=== PATIENT | female | born 1945 | race Caucasian/White ===

== ENCOUNTER → 2021-04-23 13:06 | Outpatient (CLI) | payer MEDICARE, BC, SELFPAY ==
[2021-04-23 14:36] LABS: COVID19 -Nasal RAPID Negative (Negative)
== END ==
PROVIDERS: PCP Family Medicine; Referring Provider Internal Medicine; Visit Provider Internal Medicine
DX: Z20.822 Contact with and (suspected) exposure to COVID-19 (principal); J84.9 Interstitial pulmonary disease, unspecified; J47.9 Bronchiectasis, uncomplicated
CPT/HCPCS: 71250; 87635; C9803

== ENCOUNTER → 2021-04-23 13:12 | Outpatient (CLI) | payer MEDICARE, BC, SELFPAY ==
--- NOTE | 2021-04-23 13:18 | DI.CT.S_ITS ---
PROCEDURE: CT CHEST HIGH RESOLUTION INDICATIONS: Interstitial pulmonary disease, unspecified TECHNIQUE: Noncontrast 1.0 and 5.0 mm thick contiguous axial sections from the pulmonary apex to the posterior costophrenic angles, with 7 mm thick coronal and sagittal MIP reformats. 1 mm thick dynamic expiratory images acquired through the upper, mid, and lower lungs. 1.0 mm thick axial sections acquired from the celestine to the posterior costophrenic angles in the prone end-inspiration position. For radiation dose reduction, the following was used: automated exposure control, adjustment of mA and/or kV according to patient size. COMPARISON: None. FINDINGS: Image quality: Excellent. Lungs: There is moderate subpleural reticular thickening. This persists on the prone sequence. There is mild bronchiectasis. No honeycombing. No air trapping seen. The airways are clear. Pleura: No pleural effusions or pneumothorax. Mediastinum: Heart size is normal. Three-vessel coronary artery calcifications. No pericardial effusion. Small AP window node measuring 0.8 cm, (4/20). Thoracic aorta and central pulmonary arteries are normal in size. Esophagus is normal in caliber. Bones and chest wall: No suspicious bony lesions. No vertebral body compression fractures. Abdomen: Post cholecystectomy. Visualized upper abdominal solid organs and bowel loops appear normal. IMPRESSION: Probable UIP pattern interstitial lung disease. Moderate subpleural reticulation with mild bronchiectasis. No honeycombing. If remote CTs are available, it would be helpful for comparison to assess disease progression. Dictated by: Mani Zaragoza M.D. on 04/23/2021 at 14:36 Approved by: Mani Zaragoza M.D. on 04/23/2021 at 14:48
== END ==
PROVIDERS: PCP Family Medicine; Referring Provider Internal Medicine; Visit Provider Internal Medicine
DX: J84.9 Interstitial pulmonary disease, unspecified (principal); J47.9 Bronchiectasis, uncomplicated
CPT/HCPCS: 71250

== ENCOUNTER → 2021-04-24 12:02 | Outpatient (CLI) | payer MEDICARE, BC, SELFPAY ==
--- NOTE | 2021-05-01 09:39 | PM.PFT.1 ---
Pulmonary Function Test Referral & Results Date Patient Seen: 04/24/21 Requesting provider: Shorty Galeas Results: The spirometry demonstrates an FVC of 2.55 L which is 95% of predicted. The FEV1 was measured at 2.17 L which is 108% of predicted. The FEV1/FVC ratio was 85 which is 115% of predicted. Following the administration of bronchodilator there was 25% improvement in FEF 25-75% Lung volumes show an SVC of 2.85 L which is 105% of predicted. The diffusing capacity was measured at 11.53 which is 47% of predicted. No hemoglobin value was provided, so no correction for potential anemia could be made, if appropriate. The maximum voluntary ventilation was normal Interpretation: This study demonstrates probably normal spirometry. There is a minimal improvement in small airway flow after bronchodilator but otherwise is without evidence of any obstructive lung disease There is a marked reduction diffusing capacity suggesting significant disease at the capillary alveolar level This suggests more of a true interstitial lung disease Clinical correlation suggested
== END ==
PROVIDERS: PCP Family Medicine; Referring Provider Internal Medicine; Visit Provider Internal Medicine
DX: R06.02 Shortness of breath (principal); Z87.891 Personal history of nicotine dependence; J84.9 Interstitial pulmonary disease, unspecified
CPT/HCPCS: 94060; 94618; 94726; 94729

== ENCOUNTER → 2021-08-23 13:13 | Outpatient (CLI) | payer MEDICARE, BC, SELFPAY ==
--- NOTE | 2021-08-23 | DI.RAD.S_ITS ---
PROCEDURE: XR CHEST 2V INDICATIONS: Single subsegmental pulmonary embolism without acute cor pul TECHNIQUE: 2 views of the chest were acquired. COMPARISON: None. FINDINGS: Surgical changes and devices: None. Lungs and pleura: Diffuse interstitial change which may potentially represent mild acute interstitial pulmonary edema. No pleural effusions or pneumothorax. Mediastinum: Mediastinal contours are normal. Cardiomegaly. Bones and chest wall: No suspicious bony abnormalities. Soft tissues appear unremarkable. IMPRESSION: Cardiomegaly. Question mild interstitial pulmonary edema. Dictated by: Félix De Jesus M.D. on 08/23/2021 at 14:17 Approved by: Félix De Jesus M.D. on 08/23/2021 at 14:18
--- NOTE | 2021-08-23 | DI.NM.S_ITS ---
PROCEDURE: NM PUL VENT AND PERFUSION RADIOPHARMACEUTICAL: 37.6 mCi Tc-99m DTPA aerosol by inhalation and 6.8 mCi Tc-99m MAA intravenously. INDICATIONS: Single subsegmental pulmonary embolism without acute cor pul TECHNIQUE: Ventilation images were obtained first with Tc-99m DTPA aerosol. Subsequently, perfusion images were acquired after intravenous injection of Tc-99m MAA. Anterior, posterior, CHAO, MINAL, RPO, LPO, left and right lateral views were obtained. COMPARISON: [facility], CR, XR CHEST 2V, 08/23/2021, 13:15. FINDINGS: Chest x-ray demonstrates bibasilar coarsening of likely interstitial edema. There are scattered small matched defects identified. No moderate or large mismatched defects. IMPRESSION: Scattered small matched defects. Overall low probability for pulmonary embolism. However, if concern persists, CT is recommended for further evaluation. Dictated by: Alexa Juarez M.D. on 08/23/2021 at 16:56 Approved by: Alexa Juarez M.D. on 08/23/2021 at 16:58
== END ==
PROVIDERS: PCP Family Medicine; Referring Provider Internal Medicine; Visit Provider Internal Medicine
DX: I26.93 Single subsegmental thrombotic pulmonary embolism without acute cor pulmonale (principal); I51.7 Cardiomegaly
CPT/HCPCS: 71046; 78582; A9539; A9540

== ENCOUNTER → 2022-11-26 13:26 | Outpatient (CLI) | payer MEDICARE, SELFPAY ==
--- NOTE | 2022-11-26 | DI.ECHO.S_ITS ---
[place] +---------+ [facility] +---------+ : : [address] : : : : [id number] : : : : Phone: [phone]+ Echocardiogram Report + + :Name: BEATRIZ DEL REAL Study Date: 11/26/2022 Height: 64 in : :[facility] ReadingLocation: Weight: 175 lb : : Gender: Female BSA: 1.8 m2 : :: 1945 Age: 77 yrs BP: 125/74 mmHg: :Reason For Study: DYSPNEA : :Ordering Physician: JANNIE, : :ERIK Performed By: Bess Fox : :Referring: ERIK VALDERRAMA : + + Interpretation Summary The ejection fraction is estimated to be 45-50%. There is inferior wall mild hypokinesis. The right ventricle is mildly dilated. The right ventricular systolic function is normal. There is no significant valvular heart disease. Procedure: A two-dimensional transthoracic echocardiogram with color flow and Doppler was performed. The study quality was technically adequate. There is no prior echocardiogram noted for this patient. The patient was in sinus rhythm with heart rates between 75-82 bpm during the exam. Left Ventricle: The left ventricle is normal in size and wall thickness. The ejection fraction is estimated to be 45-50%. There is inferior wall mild hypokinesis. Right Ventricle: The right ventricle is mildly dilated. The right ventricular systolic function is normal. Atria: The left atrial size is normal. Right atrial size is normal. There is no Doppler evidence for an interatrial shunt. Mitral Valve: There is mild mitral annular calcification. The mitral valve leaflets appear normal. There is no evidence of stenosis, fluttering, or prolapse. There is trace mitral regurgitation. Aortic Valve: The aortic valve is trileaflet. The aortic valve opens well. The aortic valve is slightly calcified. There is no aortic valve stenosis. No aortic regurgitation is present. Tricuspid Valve: The tricuspid valve is not well visualized, but is grossly normal. There is trace tricuspid regurgitation. Pulmonic Valve: The pulmonic valve leaflets are thin and pliable; valve motion is normal. There is trace pulmonic regurgitation. Great Vessels: The aortic root is normal size. The dimensions of the ascending aorta are normal. The IVC is of normal diameter and collapses greater than 50% with a sniff. This suggests a low right atrial pressure of 3 mm Hg. Pericardium/ Pleura There is no pericardial effusion. There is no pleural effusion. MMode/2D Measurements & Calculations LVIDd: 4.8 cm LVOT diam: 2.0 cm LVIDs: 3.4 cm Ao root diam: 3.1 cm FS: 29.5 % asc Aorta Diam: 3.6 cm EPSS: 1.4 cm Ao Arch Diam (Prox Trans): 2.7 cm IVSd: 0.64 cm LVPWd: 0.99 cm LV wood. diameter/BSA (cm/m^2): 2.6 LV sys. diameter/BSA (cm/m^2): 1.8 LA A2 area: 18.7 cm2 RA long axis: 5.1 cm LA A4 area: 17.5 cm2 RA area: 14.6 cm2 LA length (vol): 5.4 cm RA vol: 35.5 ml LA vol: 51.5 ml RA : 19.2 ml/m2 LA vol index: 27.9 ml/m2 IVC diam: 1.4 cm RVD1 (basal): 3.9 cm TAPSE: 1.7 cm Doppler Measurements & Calculations Ao V2 max: 109.0 cm/sec LVOT Max Waldo: 71.6 cm/sec Ao V2 mean: 76.9 cm/sec LV V1 max P.1 mmHg Ao max P.8 mmHg LV V1 VTI: 14.9 cm Ao mean P.6 mmHg MARJORIE(I,D): 2.1 cm2 Ao V2 VTI: 22.3 cm MARJORIE(V,D): 2.1 cm2 sev ratio: 0.67 MARJORIE indexed to BSA (cm^2/m^2): 1.2 MV E max waldo: 58.5 cm/sec PA V2 max: 77.9 cm/sec MV A max waldo: 98.3 cm/sec PA V2 mean: 57.2 cm/sec MV E/A: 0.59 PA mean P.4 mmHg Med Peak E' Waldo: 2.1 cm/sec PA pr(Accel): 37.9 mmHg E/E' med: 27.6 Lat Peak E' Waldo: 5.9 cm/sec E/E' lat: 9.9 E/e' average: 18.8 MV dec time: 0.25 sec SV(LVOT): 47.4 ml Reading Physician:04:39 PM
== END ==
PROVIDERS: PCP Physician Assistant; Referring Provider Internal Medicine; Visit Provider Internal Medicine
DX: I34.81 Nonrheumatic mitral (valve) annulus calcification (principal); R06.09 Other forms of dyspnea
CPT/HCPCS: 93306

== ENCOUNTER → 2023-03-12 | Outpatient (CLI) | payer MEDICARE, SELFPAY ==
--- NOTE | 2023-03-12 18:11 | DI.NM.S_ITS ---
DATE OF SERVICE: 03/12/2023 PROCEDURE PERFORMED: Pharmacologic vasodilator stress and rest myocardial perfusion imaging with gating to assess ejection fraction and regional wall motion. ORDERING PROVIDER: Matt Fortune MD. INDICATIONS: The patient is an 78-year-old female with dyspnea, chest discomfort, and an abnormal echocardiogram. CARDIAC STRESS: Per protocol, 0.4 mg of regadenoson was infused, augmented by walking on the treadmill at a low level. With this, she had minimal dyspnea but no chest discomfort and had a normal hemodynamic response, achieving a maximum heart rate of 105 BPM (75% of her predicted maximum). Her resting ECG shows sinus rhythm with normal ST segments. There are no significant ST-segment shifts or arrhythmias with stress. Per protocol, 25.5 mCi of technetium-99m Myoview was infused and the patient was imaged 15 minutes later using a gated SPECT acquisition protocol. Earlier in the day, while at rest, she had been injected with 12.0 mCi of technetium-99m Myoview and was imaged 15 minutes later, again using a gated SPECT acquisition protocol. FINDINGS: 1. Raw data. There was fairly good myocardial tracer uptake noted with only slight breast shadows appreciated. The lung/heart ratio is normal at 0.65 with a normal TID ratio of 0.89. 2. Quantitated gated SPECT: Post-stress ejection fraction is estimated at 72% without any focal wall motion abnormality, and specifically the inferior wall appears to have normal contractility. The resting ejection fraction is 73% with a normal resting end-diastolic volume of 74 mL. 3. Myocardial perfusion imaging: Post-stress supine images shows a uniform pattern of tracer distribution without any perfusion defects, supported by a normal perfusion imaging pattern in the prone position. The resting images show an identical perfusion pattern without any areas of improvement. IMPRESSION: 1. Normal myocardial perfusion study. 2. No evidence of myocardial ischemia or previous myocardial infarction. 3. Normal left ventricular systolic function without any focal wall motion abnormality. 4. No angina or ECG evidence of ischemia with pharmacologic vasodilator stress. Delia Marin - /smiley/ doc#: [id number]/job#: [id number] dd: 03/12/2023 16:30:00 dt: 03/12/2023 17:37:00 DICTATING MD/COPIES TO: Enrrique Alegre MD; Matt Fortune MD COPIES MNE: MIYA;
== END ==
LOC: NUCM 09:08
PROVIDERS: PCP Physician Assistant; Referring Provider Internal Medicine Cardiovascular Disease; Visit Provider Internal Medicine Cardiovascular Disease
DX: I42.9 Cardiomyopathy, unspecified (principal); R06.00 Dyspnea, unspecified; R07.89 Other chest pain; R94.31 Abnormal electrocardiogram [ECG] [EKG]
CPT/HCPCS: 78452; 93017; A9502; J2785

== ENCOUNTER → 2023-07-09 10:56 | Outpatient (CLI) | payer MEDICARE, SELFPAY | PROVIDERS: PCP Physician Assistant; Referring Provider Internal Medicine; Visit Provider Internal Medicine | DX: J84.89 Other specified interstitial pulmonary diseases (principal); Z87.891 Personal history of nicotine dependence; J98.8 Other specified respiratory disorders | CPT/HCPCS: 94010; 94729 ==

== ENCOUNTER → 2023-08-27 14:03 | Outpatient (CLI) | payer MEDICARE, SELFPAY ==
--- NOTE | 2023-08-27 14:05 | DI.CT.S_ITS ---
PROCEDURE: CT CHEST HIGH RESOLUTION INDICATIONS: Interstitial pulmonary disease, unspecified TECHNIQUE: Noncontrast 1.0 and 5.0 mm thick contiguous axial sections from the pulmonary apex to the posterior costophrenic angles, with 7 mm thick coronal and sagittal MIP reformats. 1 mm thick dynamic expiratory images acquired through the upper, mid, and lower lungs. 1.0 mm thick axial sections acquired from the celestine to the posterior costophrenic angles in the prone end-inspiration position. For radiation dose reduction, the following was used: automated exposure control, adjustment of mA and/or kV according to patient size. COMPARISON: [facility], CT, CT CHEST HIGH RESOLUTION, 04/23/2021, 13:30. FINDINGS: Image quality: Diagnostic. Lower Neck: No enlarged lymph nodes. Thyroid: No thyroid nodules which require sonographic follow up, per consensus guidelines. Axillae: No enlarged lymph nodes. Chest Wall: Unremarkable. Bones: Unremarkable. Lungs and Pleura: Basilar predominant reticulation, with mostly subpleural sparing and trace ground-glass. No significant progression from prior. Superimposed calcified tree-in-bud nodules. Mild bronchiectasis. Mild air trapping. Heart: Heart size is enlarged. No pericardial effusion. [id number] coronary calcifications. Valvular calcifications. Thoracic Vessels: The aorta and pulmonary arteries demonstrate normal size. Mediastinum and Yennifer: No enlarged lymph nodes. Esophagus: No wall thickening. No hiatal hernia. Upper Abdomen: Visualized upper abdomen solid organs and bowel loops appear normal. 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 CT pattern indeterminate for UIP . Dictated by: Franck Winn M.D. on 08/27/2023 at 15:20 Approved by: Franck Winn M.D. on 08/27/2023 at 15:23
== END ==
LOC: CT 14:04
PROVIDERS: PCP Physician Assistant; Referring Provider Internal Medicine; Visit Provider Internal Medicine
DX: J84.9 Interstitial pulmonary disease, unspecified (principal)
CPT/HCPCS: 71250

== ENCOUNTER → 2024-01-28 13:02 | Outpatient (CLI) | payer MEDICARE, SELFPAY ==
--- NOTE | 2024-01-28 | DI.CT.S_ITS ---
PROCEDURE: CT CHEST HIGH RESOLUTION INDICATIONS: interstitial pulmonary diseases TECHNIQUE: Noncontrast 1.0 and 5.0 mm thick contiguous axial sections from the pulmonary apex to the posterior costophrenic angles, with 7 mm thick coronal and sagittal MIP reformats. 1 mm thick dynamic expiratory images acquired through the upper, mid, and lower lungs. 1.0 mm thick axial sections acquired from the celestine to the posterior costophrenic angles in the prone end-inspiration position. For radiation dose reduction, the following was used: automated exposure control, adjustment of mA and/or kV according to patient size. COMPARISON: [facility], CT, CT CHEST HIGH RESOLUTION, 08/27/2023, 14:30. FINDINGS: Image quality: Diagnostic. Lower Neck: No enlarged lymph nodes. Thyroid: No thyroid nodules which require sonographic follow up, per consensus guidelines. Axillae: No enlarged lymph nodes. Chest Wall: Unremarkable. Bones: Unremarkable. Lungs and Pleura: No pneumothorax or pleural effusions. Basilar predominant peripheral reticulation with subpleural sparing. No honeycombing. Mild ground-glass is present. There has been progression since prior. Superimposed tree-in-bud nodules are present. Heart: Heart size is mildly enlarged. No pericardial effusion. Three-vessel coronary artery calcifications. Thoracic Vessels: Dilated pulmonary artery at 3.2 cm. Mediastinum and Yennifer: No enlarged lymph nodes. Esophagus: No wall thickening. No hiatal hernia. Upper Abdomen: Visualized upper abdomen solid organs and bowel loops appear normal. IMPRESSION: Interval progression of interstitial lung disease, CT pattern indeterminate for UIP, most likely NSIP. Evidence of pulmonary hypertension with a dilated pulmonary artery. Dictated by: Franck Winn M.D. on 01/28/2024 at 14:12 Approved by: Franck Winn M.D. on 01/28/2024 at 14:17
== END ==
PROVIDERS: PCP Physician Assistant; Referring Provider Internal Medicine; Visit Provider Internal Medicine
DX: J84.9 Interstitial pulmonary disease, unspecified (principal); I25.10 Atherosclerotic heart disease of native coronary artery without angina pectoris; I28.1 Aneurysm of pulmonary artery
CPT/HCPCS: 71250

== ENCOUNTER → 2024-05-03 10:53 | Outpatient (CLI) | payer OTHER, SELFPAY | LOC: RESP 10:56 | PROVIDERS: PCP Physician Assistant; Referring Provider Internal Medicine; Visit Provider Internal Medicine | DX: J84.89 Other specified interstitial pulmonary diseases (principal); Z87.891 Personal history of nicotine dependence; R94.2 Abnormal results of pulmonary function studies | CPT/HCPCS: 94010; 94060; 94729 ==